=== PATIENT | female | born 1980 | race Caucasian/White ===

== ENCOUNTER 2016-10-23 17:17 | Inpatient (IN) | payer OTHER ==
[~2016-10-23] VITALS: Ht 165.1 cm; Wt 70.0 kg
[~2016-10-23 17:17] MED LIST: PNV1TABL11
[2016-10-23 17:41] VITALS: BP 123/87
[2016-10-23] MEDS ORDERED: OXYTOCIN 30U/ 0.9% NaCL 500ML 500 ML IV ONE (17:55)
[2016-10-23] MEDS: LACTATED RINGERS 1,000 ML IV SCH ×3 (17:55→19:42)
[2016-10-23] MEDS: D5%-LACTATED RINGERS 1,000 ML IV SCH (17:55)
[2016-10-23] MEDS ORDERED: FENTANYL/BUPIV./NS/PF 250 ML EPIDCONT SCH ×2 (17:55→19:42)
[2016-10-23] MEDS ORDERED: EPHEDRINE 50 MG/ML, 1ML IVPush PRN (18:00)
[2016-10-23] MEDS ORDERED: LACTATED RINGERS 1,000 ML IVBOLUS PRN ×2 (18:00→20:00)
[2016-10-23] MEDS ORDERED: ONDANSETRON 2MG/ML, 2ML IVPush PRN (18:00)
[2016-10-23] MEDS ORDERED: FENTANYL PF 100 MCG/2ML IVPush PRN (18:00)
[2016-10-23] MEDS ORDERED: CALCIUM CARBONATE 500 MG TAB.CHEW PO PRN (18:00)
[2016-10-23] MEDS ORDERED: MISOPROSTOL 200 MCG TABLET ONE (18:01)
[2016-10-23] MEDS ORDERED: NEWBORN KIT ONE (18:01)
[2016-10-23] MEDS ORDERED: LIDOCAINE 1%, 20ML ONE (18:01)
[2016-10-23] MEDS ORDERED: OXYTOCIN 30U/ 0.9% NaCL 500ML 500 ML ONE ×2 (18:02→22:27)
[2016-10-23] MEDS: PLEASE ENTER HEIGHT AND WEIGHT MC SCH (18:30)
[2016-10-23] MEDS ORDERED: ASPI-496 PO (18:46)
[2016-10-23] MEDS ORDERED: DIPH50CA62 PO (18:47)
[2016-10-23] MEDS ORDERED: vitamin b6 PO (18:49)
[2016-10-23] MEDS ORDERED: FENTANYL/BUPIV./NS/PF 250 ML EPIDCONT ONE (18:58)
[2016-10-23] MEDS ORDERED: FENTANYL PF 100 MCG/2ML ONE (18:58)
[2016-10-23] MEDS ORDERED: BUPIVACAINE 0.25% ONE (18:59)
[2016-10-23] MEDS: OXYTOCIN 30U/ 0.9% NaCL 500ML 500 ML IV SCH (22:22)
[2016-10-23] MEDS ORDERED: IBUPROFEN 600 MG TABLET ONE (22:27)
[2016-10-23] MEDS ORDERED: DOCUSATE 100 MG CAPSULE PO PRN (22:30)
[2016-10-23] MEDS ORDERED: MISOPROSTOL 200 MCG TABLET PR PRN (22:30)
[2016-10-23] MEDS ORDERED: METHYLERGONOVINE 0.2 MG/ML IM PRN (22:30)
[2016-10-23] MEDS ORDERED: ONDANSETRON 2MG/ML, 2ML IV PRN (22:30)
[2016-10-23] MEDS ORDERED: HYDROcodone/APAP 5/325 TABLET PO PRN ×2 (22:30)
[2016-10-23] MEDS: IBUPROFEN 600 MG TABLET PO PRN (22:30)
[2016-10-23 23:55] VITALS: BP 109/63
[2016-10-24] MEDS: D5%-LACTATED RINGERS 1,000 ML IV SCH (01:55)
[2016-10-24] MEDS: LACTATED RINGERS 1,000 ML IV SCH ×3 (01:55→03:42)
[2016-10-24] MEDS: PLEASE ENTER HEIGHT AND WEIGHT MC SCH (02:30)
[2016-10-24 05:45] VITALS: BP 109/70
[2016-10-24] MEDS: IBUPROFEN 600 MG TABLET PO PRN (06:07)
[2016-10-24 06:55] VITALS: BP 102/66
[2016-10-24] MEDS ORDERED: PRENATAL VIT/IRON/FA 1 EACH TABLET ONE (07:26)
[2016-10-24] MEDS: OXYTOCIN 30U/ 0.9% NaCL 500ML 500 ML IV SCH (08:22)
[2016-10-24] MEDS ORDERED: PRENATAL VIT/IRON/FA 1 EACH TABLET PO SCH (09:00)
[2016-10-24] MEDS ORDERED: HYDR-3240 PO (16:46)
[2016-10-24] MEDS ORDERED: DOCU-30 PO (16:46)
[2016-10-24] MEDS ORDERED: IBUP-1222 PO (16:49)
== END 2016-10-24 18:19 | disposition home or self-care (01) | DRG 775 ==
LOC: LDOP 17:17 → LDIP 18:06 → 2NW 22:43
PROVIDERS: ADMIT Student in an Organized Health Care Education/Training Program; ATTEND Student in an Organized Health Care Education/Training Program
PROC: 10E0XZZ Delivery of Products of Conception, External Approach (ICD-10-PCS; principal; 2016-10-23)
PROC: 0HQ9XZZ Repair Perineum Skin, External Approach (ICD-10-PCS; 2016-10-23)
PROC: 00HU33Z Insertion of Infusion Device into Spinal Canal, Percutaneous Approach (ICD-10-PCS; 2016-10-23)
PROC: 3E0R3CZ (ICD-10-PCS; 2016-10-23)
DX: O69.1XX0 Labor and delivery complicated by cord around neck, with compression, not applicable or unspecified (principal); Z3A.40 40 weeks gestation of pregnancy; Z37.0 Single live birth; H91.92 Unspecified hearing loss, left ear; Z88.1 Allergy status to other antibiotic agents; Z79.82 Long term (current) use of aspirin; O70.0 First degree perineal laceration during delivery
CPT/HCPCS: 36415; 85025; 86850; 86900; J2590; J3010; J7120